=== PATIENT | female | born 1995 | race American Indian/Alaskan Native ===

== ENCOUNTER 2016-07-05 09:17 | Emergency (ER) | payer MEDICAID ==
[2016-07-05 09:25] VITALS: BP 107/68
--- NOTE | 2016-07-05 09:59 | Emergency Department Report ---
ED Lower Extremity HPI - General Chief Complaint: Extremity Injury, Lower Stated Complaint: LEFT ANKLE PAIN Time Seen by Provider: 07/05/16 09:38 Source: patient Mode of arrival: Wheelchair Limitations: Physical Limitation - History of Present Illness Initial Comments: 21-year-old female past medical history none presents with complaint of left ankle pain status post inversion mechanism while walking on street yesterday. Patient states she tripped due to cracking sidewalk inverted left ankle and has had difficulty walking on left ankle since yesterday. The patient has visible swelling and left ankle joint and lateral malleolus, patient able to stand but unable to walk due to severe pain left ankle. Denies any other injuries. MD Complaint: ankle injury Onset/Timin -: days(s) Injury: Ankle: Left (twisted left ankle yesterday) Type of Injury: inversion Place: street/outdoors Severity: moderate Severity scale (0 -10): 7 Improves With: immobilization Worsens With: weight bearing, movement Context: walking Associated Symptoms: snap/pop sensation, swelling, unable to bear weight - Related Data Previous Rx's Medication Instructions Recorded Last Taken Type Naproxen [Naprosyn TAB] 500 mg PO BID PRN #25 tablet 07/05/16 Unknown Rx Allergies Allergy/AdvReac Type Severity Reaction Status Date / Time No Known Allergies Allergy Unverified 07/05/16 09:26 ED Review of Systems ROS: Stated complaint: LEFT ANKLE PAIN Other details as noted in HPI Constitutional: denies: chills, fever Eyes: denies: eye pain, eye discharge, vision change ENT: denies: ear pain, throat pain Respiratory: denies: cough, shortness of breath, wheezing Cardiovascular: denies: chest pain, palpitations Endocrine: no symptoms reported Gastrointestinal: denies: abdominal pain, nausea, diarrhea Genitourinary: denies: urgency, dysuria, discharge Musculoskeletal: as per HPI, joint swelling. denies: back pain, arthralgia Skin: denies: rash, lesions Neurological: denies: headache, weakness, paresthesias Psychiatric: denies: anxiety, depression Hematological/Lymphatic: denies: easy bleeding, easy bruising ED Past Medical Hx - Past Medical History Hx Diabetes: Yes (GESTATIONAL) - Surgical History Additional Surgical History: X 3. HERNIA REPAIR. TUBAL LIGATION - Social History Smoking Status: Never Smoker Substance Use Type: None - Medications Home Medications: Home Medications Medication Instructions Recorded Confirmed Last Taken Type Naproxen [Naprosyn TAB] 500 mg PO BID PRN #25 tablet 07/05/16 Unknown Rx ED Physical Exam - General Limitations: Physical Limitation General appearance: alert, in no apparent distress - Head Head exam: Present: atraumatic, normocephalic - Eye Eye exam: Present: normal appearance, PERRL, EOMI - ENT ENT exam: Present: mucous membranes moist - Neck Neck exam: Present: normal inspection - Respiratory Respiratory exam: Present: normal lung sounds bilaterally. Absent: respiratory distress - Cardiovascular Cardiovascular Exam: Present: regular rate, normal rhythm. Absent: systolic murmur, diastolic murmur, rubs, gallop - GI/Abdominal GI/Abdominal exam: Present: soft, normal bowel sounds - Extremities Exam Extremities exam: Present: normal inspection - Expanded Lower Extremity Exam Left Hip exam: Present: normal inspection, full ROM Upper Leg exam: Present: normal inspection, full ROM Knee exam: Present: normal inspection, full ROM Lower Leg exam: Present: normal inspection, full ROM Ankle exam: Present: full ROM (pain with plantarflexion and ankle inversion), tenderness (left ankle lateral malleolus swelling), swelling, ecchymosis Foot/Toe exam: Present: normal inspection, full ROM Neuro vascular tendon exam: Present: no vascular compromise Gait: Positive: observed and limited by pain 1 - Left lateral malleolus swelling - Back Exam Back exam: Present: normal inspection - Neurological Exam Neurological exam: Present: alert, oriented X3, CN II-XII intact, abnormal gait (cannot bear weight due to pain) - Psychiatric Psychiatric exam: Present: normal affect, normal mood - Skin Skin exam: Present: warm, dry, intact, normal color. Absent: rash ED Course Vital Signs 07/05/16 09:17 Temperature 98.1 F Pulse Rate 68 Respiratory 17 Rate Blood Pressure 107/68 O2 Sat by Pulse 99 Oximetry ED Lower Extremity MDM - Medical Decision Making A/P: Left lateral ankle sprain 1-crutches, ankle stirrup splint, nonweightbearing for now weightbearing as tolerated within the next few days 2-orthopedics referral, patient instructed to follow-up if pain persists beyond 5-7 days 3-naproxen 500 mg when necessary 4-RICE therapy Critical care attestation.: If time is entered above; I have spent that time in minutes in the direct care of this critically ill patient, excluding procedure time. ED Disposition Clinical Impression: Left ankle sprain Qualifiers: Encounter type: initial encounter Involved ligament of ankle: tibiofibular ligament Qualified Code(s): S93.432A - Sprain of tibiofibular ligament of left ankle, initial encounter Disposition: DISCHARGED TO HOME OR SELFCARE Is pt being admited?: No Does the pt Need Aspirin: No Condition: Stable Instructions: Ankle Sprain (ED), Ankle Stirrup Splint (ED), Crutch Instructions (ED), RICE Therapy (ED) Prescriptions: Naproxen [Naprosyn TAB] 500 mg PO BID PRN #25 tablet PRN Reason: Pain Referrals: PRIMARY MD DIANE [Primary Care Provider] - 3-5 Days EDWARD BRADSHAW MD [Staff Physician] - 3-5 Days Forms: Work/School Release Form(ED) Time of Disposition: 10:48
--- NOTE | 2016-07-05 10:35 | XRay Report ---
LEFT FOOT THREE VIEWS: 07/05/16 09:39:00 CLINICAL: Pain. FINDINGS: No fracture or dislocation. Normal soft tissues. No soft tissue air or foreign body. IMPRESSION: Normal.
--- NOTE | 2016-07-05 10:36 | XRay Report ---
LEFT ANKLE THREE VIEWS: 07/05/16 09:17:00 CLINICAL: Pain. FINDINGS: The ankle mortise is intact. No fracture or dislocation. Mild medial and lateral soft tissue swelling. No foreign body or soft tissue air. IMPRESSION: Soft tissue swelling but otherwise normal.
[2016-07-05] MEDS ORDERED: NORCO 5/325 PO ONE (10:40)
== END 2016-07-05 11:37 | disposition home or self-care (01) ==
LOC: ED 09:17
DX: S93.432A Sprain of tibiofibular ligament of left ankle, initial encounter (principal); X58.XXXA Exposure to other specified factors, initial encounter; Y93.9 Activity, unspecified; Y99.9 Unspecified external cause status; Y92.9 Unspecified place or not applicable
CPT/HCPCS: 99283

== ENCOUNTER 2016-08-25 12:27 | Emergency (ER) | payer MEDICAID ==
[2016-08-25 13:17] VITALS: BP 130/76
[2016-08-25 13:37] LABS: Basophils % (Auto) 0.4 % (0.0-1.8); Eosinophils % (Auto) 3.4 % (0.0-4.3); Hematocrit 28.9 % (30.3-42.9); Hemoglobin 8.9 gm/dl (10.1-14.3); Mean Corpuscular HGB Conc 31 % (30-34); Mean Corpuscular Hemoglobin 17 pg (28-32); Mean Corpuscular Volume 54 fl (79-97); Platelet Count 388 K/mm3 (140-440); Red Blood Count 5.41 M/mm3 (3.65-5.03); Red Cell Distribution Width 18.8 % (13.2-15.2); White Blood Count 9.4 K/mm3 (4.5-11.0)
[2016-08-25 13:54] LABS: Alanine Aminotransferase 13 units/L (7-56); Albumin 4.2 g/dL (3.9-5); Albumin/Globulin Ratio 1.4 %; Alkaline Phosphatase 99 units/L (35-129); Anion Gap 17 mmol/L; Bilirubin,Total 0.2 mg/dL (0.1-1.2); Blood Urea Nitrogen 6 mg/dL (7-17); Calcium 8.9 mg/dL (8.4-10.2); Carbon Dioxide 21 mmol/L (22-30); Glucose 124 mg/dL (65-100); Lipase 31 units/L (13-60); Potassium 3.7 mmol/L (3.6-5.0); Sodium 138 mmol/L (137-145); Total Protein 7.1 g/dL (6.3-8.2)
[2016-08-25 14:12] LABS: Bacteria,Urine 1+ /HPF (Negative); Bilirubin,Urine NEG (Negative); Blood,Urine SM (Negative); Ketones,Urine NEG (Negative); Leukocyte Esterase,Urine SM (Negative); Mucus,Urine 3+ /HPF; Nitrite,Urine POS (Negative); Protein,Urine <15 mg/dL mg/dL (Negative); Urobilinogen,Urine < 2.0 mg/dL (<2.0)
--- NOTE | 2016-08-27 07:04 | ED Elopement Review ---
ED Pt Elopement review - Results review Lab results: Laboratory Tests 08/25/16 08/25/16 08/25/16 13:25 13:25 13:25 WBC 9.4 RBC 5.41 H Hgb 8.9 L Hct 28.9 L MCV 54 L MCH 17 L MCHC 31 RDW 18.8 H Plt Count 388 Lymph % (Auto) 45.2 H [place] % (Auto) 5.8 Eos % (Auto) 3.4 Baso % (Auto) 0.4 Lymph # 4.3 [place] # 0.5 Eos # 0.3 Baso # 0.0 Seg Neutrophils % 45.2 Seg Neutrophils # 4.3 Sodium 138 Potassium 3.7 Chloride 104.0 Carbon Dioxide 21 L Anion Gap 17 BUN 6 L Creatinine 0.6 L Estimated GFR > 60 BUN/Creatinine Ratio 10.00 Glucose 124 H Calcium 8.9 Total Bilirubin 0.2 AST 14 ALT 13 Alkaline Phosphatase 99 Total Protein 7.1 Albumin 4.2 Albumin/Globulin Ratio 1.4 Lipase 31 HCG, Qual Negative Urine Color Urine Turbidity Urine pH Ur Specific [place] Urine Protein Urine Glucose (UA) Urine Ketones Urine Blood Urine Nitrite Urine Bilirubin Urine Urobilinogen Ur Leukocyte Esterase Urine WBC (Auto) Urine RBC (Auto) U Epithel Cells (Auto) Urine Bacteria (Auto) Urine Mucus 08/25/16 13:39 WBC RBC Hgb Hct MCV MCH MCHC RDW Plt Count Lymph % (Auto) [place] % (Auto) Eos % (Auto) Baso % (Auto) Lymph # [place] # Eos # Baso # Seg Neutrophils % Seg Neutrophils # Sodium Potassium Chloride Carbon Dioxide Anion Gap BUN Creatinine Estimated GFR BUN/Creatinine Ratio Glucose Calcium Total Bilirubin AST ALT Alkaline Phosphatase Total Protein Albumin Albumin/Globulin Ratio Lipase HCG, Qual Urine Color Yellow Urine Turbidity Cloudy Urine pH 6.0 Ur Specific [place] 1.021 Urine Protein <15 mg/dl Urine Glucose (UA) Neg Urine Ketones Neg Urine Blood Sm Urine Nitrite Pos Urine Bilirubin Neg Urine Urobilinogen < 2.0 Ur Leukocyte Esterase Sm Urine WBC (Auto) 14.0 H Urine RBC (Auto) 2.0 U Epithel Cells (Auto) 7.0 Urine Bacteria (Auto) 1+ Urine Mucus 3+ - Call Back decision Pt Call Back Decision: No action required
== END 2016-08-25 22:10 | disposition left against medical advice (07) ==
LOC: ED 12:27
DX: R10.9 Unspecified abdominal pain (principal); R11.10 Vomiting, unspecified; R19.7 Diarrhea, unspecified; Z53.21 Procedure and treatment not carried out due to patient leaving prior to being seen by health care provider
CPT/HCPCS: 36415; 80053; 81001; 83690; 84703; 85025

== ENCOUNTER 2017-03-31 09:38 | Emergency (ER) | payer MEDICAID ==
[2017-03-31 10:23] LABS: Basophils % (Auto) 0.4 % (0.0-1.8); Eosinophils % (Auto) 1.4 % (0.0-4.3); Hematocrit 25.8 % (30.3-42.9); Hemoglobin 8.1 gm/dl (10.1-14.3); Mean Corpuscular HGB Conc 31 % (30-34); Platelet Count 401 K/mm3 (140-440); Red Blood Count 5.01 M/mm3 (3.65-5.03)
[2017-03-31 10:24] LABS: Mean Corpuscular Hemoglobin 16 pg (28-32); Mean Corpuscular Volume 52 fl (79-97); Red Cell Distribution Width 20.2 % (13.2-15.2)
[2017-03-31 10:41] LABS: Alanine Aminotransferase 12 units/L (7-56); Albumin/Globulin Ratio 1.2 %; Alkaline Phosphatase 92 units/L (35-129); Anion Gap 18 mmol/L; BUN/Creatinine Ratio 14; Blood Urea Nitrogen 7 mg/dL (7-17); Calcium 8.7 mg/dL (8.4-10.2); Carbon Dioxide 23 mmol/L (22-30); Chloride 102.7 mmol/L (98-107); Glucose 123 mg/dL (65-100); Lipase 28 units/L (13-60); Potassium 4.1 mmol/L (3.6-5.0); Sodium 140 mmol/L (137-145); Total Protein 7.4 g/dL (6.3-8.2)
[2017-03-31 11:36] LABS: Bacteria,Urine 2+ /HPF (Negative); Bilirubin,Urine NEG (Negative); Blood,Urine NEG (Negative); Ketones,Urine NEG (Negative); Leukocyte Esterase,Urine NEG (Negative); Mucus,Urine 3+ /HPF; Nitrite,Urine POS (Negative); Protein,Urine <15 mg/dL mg/dL (Negative); Urobilinogen,Urine < 2.0 mg/dL (<2.0)
[2017-03-31] MEDS ORDERED: NACL 0.9% 250ML 250 ML IV ONE (17:48)
[2017-03-31] MEDS ORDERED: DILAUDID IV ONE (17:48)
[2017-03-31] MEDS ORDERED: TORADOL IV ONE (17:48)
--- NOTE | 2017-03-31 17:49 | Emergency Department Report ---
ED General Adult HPI - General Chief complaint: Abdominal Pain Stated complaint: ABDOMINAL PAIN, VOMITING,DIARRHEA Time Seen by Provider: 03/31/17 17:38 Source: patient, RN notes reviewed Mode of arrival: Ambulatory Limitations: No Limitations - History of Present Illness Initial comments: This is a 21-year-old female. The patient is previously known to this provider. Her primary care doctor includes Dr. Homero Barrios. She is a past medical history of 3, last was one year ago, and chronic anemia. Patient presents to the ER with right lower quadrant pain that is intermittent for the past 2 weeks. Pain increases with walking, standing, sitting up. It decreases with rest. There is no nausea, vomiting or diarrhea. Patient denies irritative and obstructive urinary symptoms. The patient denies vaginal discharge at this time. -: Gradual Location: abdomen Quality: aching Consistency: intermittent Improves with: rest Worsens with: movement Associated Symptoms: denies: confusion, chest pain, cough, diaphoresis, headaches, loss of appetite, malaise, nausea/vomiting, shortness of breath, syncope, weakness - Related Data Previous Rx's Medication Instructions Recorded Last Taken Type Acetaminophen [Tylenol Arthritis] 650 mg PO Q6HR PRN #30 tablet.er 03/31/17 Unknown Rx Doxycycline [Vibramycin] 100 mg PO Q12HR #28 capsule 03/31/17 Unknown Rx Ibuprofen [Motrin] 600 mg PO Q8H PRN #30 tablet 03/31/17 Unknown Rx Ondansetron [Zofran Odt] 4 mg PO Q8HR PRN #20 tab.rapdis 03/31/17 Unknown Rx Allergies Allergy/AdvReac Type Severity Reaction Status Date / Time No Known Allergies Allergy Verified 08/25/16 13:11 ED Review of Systems ROS: Stated complaint: ABDOMINAL PAIN, VOMITING,DIARRHEA Other details as noted in HPI Constitutional: denies: fever, malaise Eyes: denies: vision change ENT: denies: epistaxis Respiratory: denies: cough Cardiovascular: denies: chest pain Gastrointestinal: abdominal pain Genitourinary: denies: discharge Musculoskeletal: denies: back pain Skin: denies: lesions Neurological: denies: weakness ED Past Medical Hx - Past Medical History Previous Medical History?: Yes Hx Diabetes: Yes (GESTATIONAL) Additional medical history: ANEMIA - Surgical History Past Surgical History?: Yes Additional Surgical History: X 3. HERNIA REPAIR. TUBAL LIGATION - Social History Smoking Status: Current Every Day Smoker Substance Use Type: Prescribed - Medications Home Medications: Home Medications Medication Instructions Recorded Confirmed Last Taken Type Acetaminophen [Tylenol Arthritis] 650 mg PO Q6HR PRN #30 tablet.er 03/31/17 Unknown Rx Doxycycline [Vibramycin] 100 mg PO Q12HR #28 capsule 03/31/17 Unknown Rx Ibuprofen [Motrin] 600 mg PO Q8H PRN #30 tablet 03/31/17 Unknown Rx Ondansetron [Zofran Odt] 4 mg PO Q8HR PRN #20 tab.rapdis 03/31/17 Unknown Rx ED Physical Exam - General Limitations: No Limitations General appearance: alert, in no apparent distress - Head Head exam: Present: atraumatic, normocephalic - Eye Eye exam: Present: normal appearance, EOMI - ENT ENT exam: Present: normal exam, normal orophraynx, mucous membranes moist, normal external ear exam - Neck Neck exam: Present: normal inspection, full ROM - Respiratory Respiratory exam: Present: normal lung sounds bilaterally. Absent: respiratory distress, chest wall tenderness - Cardiovascular Cardiovascular Exam: Present: regular rate, normal rhythm, normal heart sounds. Absent: systolic murmur, diastolic murmur, rubs, gallop - GI/Abdominal GI/Abdominal exam: Present: soft, tenderness, normal bowel sounds, other (there is right lower quadrant tenderness, there is right flank tenderness, there is no rebound, guarding or peritoneal signs). Absent: distended, guarding, rebound , rigid, pulsatile mass - External exam: Present: normal external exam Speculum exam: Present: vaginal discharge, cervical discharge Bi-manual exam: Present: normal bi-manual exam, cervical motion tendernes, adnexal tenderness, other (escorted by ER local [place] truck driver Dev Mittal). Absent : uterine tenderness - Extremities Exam Extremities exam: Present: normal inspection, full ROM, normal capillary refill. Absent: pedal edema, joint swelling, calf tenderness - Back Exam Back exam: Present: normal inspection, full ROM. Absent: tenderness, CVA tenderness (R), paraspinal tenderness, vertebral tenderness - Neurological Exam Neurological exam: Present: alert, oriented X3, normal gait, other (Extraocular movements intact. Tongue midline. No facial droop. Facial sensation intact to light touch in the V1, V2, V3 distribution bilaterally. 5 and 5 strength in 4 extremities.. Sensation is intact to light touch in 4 extremities.). Absent : motor sensory deficit - Psychiatric Psychiatric exam: Present: normal affect, normal mood - Skin Skin exam: Present: warm, dry, intact, normal color. Absent: rash ED Course Vital Signs 03/31/17 03/31/17 10:03 19:30 Temperature 98.3 F Pulse Rate 82 Respiratory 18 16 Rate Blood Pressure 114/67 O2 Sat by Pulse 98 Oximetry - Reevaluation(s) Reevaluation #1: 03/31/17 19:35 Differential diagnosis, including but not limited to: Appendicitis, colitis, diverticulitis, Crohn's disease, ileitis, pelvic inflammatory disease, constipation, ovarian cyst, ovarian torsion Assessment and plan: 21-year-old female with 2 weeks of lower quadrant abdominal pain. The patient is afebrile with reassuring vital signs. She has lower abdominal tenderness. A transabdominal ultrasound of the pelvis demonstrated no evidence of right-sided ovarian torsion. A right-sided ovarian cyst was noted. Minimal pelvic fluid was noted. The left ovary was not visualized. CT scan of the abdomen and pelvis is pending. Gynecologic examination is pending. Urinalysis is contaminated, a repeat clean catch urine sample will be required. Reevaluation #2: 03/31/17 19:49 Transvaginal ultrasound demonstrates no evidence of torsion. Given 2 week history of pain, this is consistent with the patient's history. CT scan of the abdomen and pelvis demonstrate no surgical disease, again redemonstrates ovarian cyst. Patient had watery discharge, as well as adnexal tenderness, most prominent on the right, and some cervical discomfort. Therefore the patient will be treated empirically with ceftriaxone and doxycycline. Reevaluation #3: 03/31/17 19:52 Patient reports her pain is improved. She is noted to be speaking on a cellular phone. ED Medical Decision Making - Lab Data Result diagrams: 03/31/17 10:12 03/31/17 10:10 Vital Signs 03/31/17 03/31/17 10:03 19:30 Temperature 98.3 F Pulse Rate 82 Respiratory 18 16 Rate Blood Pressure 114/67 O2 Sat by Pulse 98 Oximetry Lab Results 03/31/17 03/31/17 03/31/17 Range/Units 10:10 10:12 10:32 WBC 9.0 (4.5-11.0) K/mm3 RBC 5.01 (3.65-5.03) M/mm3 Hgb 8.1 L (10.1-14.3) gm/dl Hct 25.8 L (30.3-42.9) % MCV 52 L (79-97) fl MCH 16 L (28-32) pg MCHC 31 (30-34) % RDW 20.2 H (13.2-15.2) % Plt Count 401 (140-440) K/mm3 Lymph % (Auto) 38.7 H (13.4-35.0) % [place] % (Auto) 4.3 (0.0-7.3) % Eos % (Auto) 1.4 (0.0-4.3) % Baso % (Auto) 0.4 (0.0-1.8) % Lymph # 3.5 (1.2-5.4) K/mm3 [place] # 0.4 (0.0-0.8) K/mm3 Eos # 0.1 (0.0-0.4) K/mm3 Baso # 0.0 (0.0-0.1) K/mm3 Seg Neutrophils % 55.2 (40.0-70.0) % Seg Neutrophils # 5.0 (1.8-7.7) K/mm3 Sodium 140 (137-145) mmol/L Potassium 4.1 (3.6-5.0) mmol/L Chloride 102.7 (98-107) mmol/L Carbon Dioxide 23 (22-30) mmol/L Anion Gap 18 mmol/L BUN 7 (7-17) mg/dL Creatinine 0.5 L (0.7-1.2) mg/dL Estimated GFR > 60 ml/min BUN/Creatinine Ratio 14 % Glucose 123 H (65-100) mg/dL Calcium 8.7 (8.4-10.2) mg/dL Total Bilirubin 0.20 (0.1-1.2) mg/dL AST 14 (5-40) units/L ALT 12 (7-56) units/L Alkaline Phosphatase 92 (35-129) units/L Total Protein 7.4 (6.3-8.2) g/dL Albumin 4.0 (3.9-5) g/dL Albumin/Globulin Ratio 1.2 % Lipase 28 (13-60) units/L Urine Color Yellow (Yellow) Urine Turbidity Clear (Clear) Urine pH 6.0 (5.0-7.0) Ur Specific [place] 1.021 (1.003-1.030) Urine Protein <15 mg/dl (Negative) mg/dL Urine Glucose (UA) Neg (Negative) mg/dL Urine Ketones Neg (Negative) mg/dL Urine Blood Neg (Negative) Urine Nitrite Pos (Negative) Urine Bilirubin Neg (Negative) Urine Urobilinogen < 2.0 (<2.0) mg/dL Ur Leukocyte Esterase Neg (Negative) Urine WBC (Auto) 3.0 (0.0-6.0) /HPF Urine RBC (Auto) 3.0 (0.0-6.0) /HPF U Epithel Cells (Auto) 22.0 H (0-13.0) /HPF Urine Bacteria (Auto) 2+ (Negative) /HPF Urine Mucus 3+ /HPF Urine HCG, Qual (Negative) 03/31/17 Range/Units 10:32 WBC (4.5-11.0) K/mm3 RBC (3.65-5.03) M/mm3 Hgb (10.1-14.3) gm/dl Hct (30.3-42.9) % MCV (79-97) fl MCH (28-32) pg MCHC (30-34) % RDW (13.2-15.2) % Plt Count (140-440) K/mm3 Lymph % (Auto) (13.4-35.0) % [place] % (Auto) (0.0-7.3) % Eos % (Auto) (0.0-4.3) % Baso % (Auto) (0.0-1.8) % Lymph # (1.2-5.4) K/mm3 [place] # (0.0-0.8) K/mm3 Eos # (0.0-0.4) K/mm3 Baso # (0.0-0.1) K/mm3 Seg Neutrophils % (40.0-70.0) % Seg Neutrophils # (1.8-7.7) K/mm3 Sodium (137-145) mmol/L Potassium (3.6-5.0) mmol/L Chloride (98-107) mmol/L Carbon Dioxide (22-30) mmol/L Anion Gap mmol/L BUN (7-17) mg/dL Creatinine (0.7-1.2) mg/dL Estimated GFR ml/min BUN/Creatinine Ratio % Glucose (65-100) mg/dL Calcium (8.4-10.2) mg/dL Total Bilirubin (0.1-1.2) mg/dL AST (5-40) units/L ALT (7-56) units/L Alkaline Phosphatase (35-129) units/L Total Protein (6.3-8.2) g/dL Albumin (3.9-5) g/dL Albumin/Globulin Ratio % Lipase (13-60) units/L Urine Color (Yellow) Urine Turbidity (Clear) Urine pH (5.0-7.0) Ur Specific [place] (1.003-1.030) Urine Protein (Negative) mg/dL Urine Glucose (UA) (Negative) mg/dL Urine Ketones (Negative) mg/dL Urine Blood (Negative) Urine Nitrite (Negative) Urine Bilirubin (Negative) Urine Urobilinogen (<2.0) mg/dL Ur Leukocyte Esterase (Negative) Urine WBC (Auto) (0.0-6.0) /HPF Urine RBC (Auto) (0.0-6.0) /HPF U Epithel Cells (Auto) (0-13.0) /HPF Urine Bacteria (Auto) (Negative) /HPF Urine Mucus /HPF Urine HCG, Qual Negative (Negative) Patient has chronic anemia, which appears to be at baseline. - Radiology Data Radiology results: report reviewed Critical care attestation.: If time is entered above; I have spent that time in minutes in the direct care of this critically ill patient, excluding procedure time. ED Disposition Clinical Impression: Abdominal pain Disposition: DC-01 TO HOME OR SELFCARE Is pt being admited?: No Does the pt Need Aspirin: No Condition: Stable Instructions: Pelvic Inflammatory Disease (ED) Additional Instructions: As we discussed, your laboratory studies appeared to be within normal limits. You are not . The CAT scan your abdomen/pelvis did not demonstrate any acute disease or pathology that would require emergency surgery, or antibiotic therapy. The addition, your pelvic ultrasound was within normal limits. CAT scan and ultrasound both suggested right-sided ovarian cyst. Given all this, you'll be treated empirically for disease called pelvic inflammatory disease. We typically treat young females with unexplained lower abdominal pain to protect your ability to have children safely in the future. Cultures were sent today, and results will be available next 3-5 days. Please have your primary care doctor call the medical records department to obtain your culture results. Take the antibiotic therapy as directed. Take the nausea medication and pain medication as directed. I recommend outpatient testing for sexually transmitted diseases, including hepatitis, syphilis and HIV. I also recommend that you abstain from sexual activity until you have completed her antibiotic therapy, a physician states that it is safe for you to resume sexual activity, and any partners that you have been sexually active with have been tested/treated/evaluated for sexual transmitted diseases. Please follow-up with physician within 3-5 days. I recommend that you return to the ER right away with worsening pain, migration of pain, intractable nausea/vomiting, inability tolerate liquid feeds. Prescriptions: Acetaminophen [Tylenol Arthritis] 650 mg PO Q6HR PRN #30 tablet.er PRN Reason: Pain Doxycycline [Vibramycin] 100 mg PO Q12HR #28 capsule Ibuprofen [Motrin] 600 mg PO Q8H PRN #30 tablet PRN Reason: Pain Ondansetron [Zofran Odt] 4 mg PO Q8HR PRN #20 tab.rapdis PRN Reason: Nausea Referrals: PRIMARY CARE, [Primary Care Provider] - 3-5 Days [facility] [Provider Group] - 3-5 Days [facility] [Provider Group] - 3-5 Days [facility] [Provider Group] - 3-5 Days
[2017-03-31] MEDS ORDERED: NACL 0.9% 500 ML 250 ML IV ONE (19:45)
--- NOTE | 2017-03-31 19:46 | Cat Scan Report ---
FINAL REPORT EXAM: CT ABDOMEN PELVIS W CON HISTORY: RLQ ABD PAIN . Right ovarian cysts seen on recent pelvic ultrasound TECHNIQUE: Standard enhanced CT of the abdomen and pelvis. Delayed images through the kidneys and bladder were obtained. Coronal and sagittal reconstruction was also performed. Contrast: 100 mL Omnipaque 300 given IV. PRIORS: Ultrasound pelvis 03/31/2017 FINDINGS: Within the abdomen, the liver, spleen, pancreas, gallbladder, adrenal glands, and kidneys are unremarkable. No evidence for retroperitoneal or pelvic lymphadenopathy is seen. Scattered diverticuli throughout the colon are seen without active diverticulitis. The small bowel loops have normal caliber. No soft tissue mass, fluid collection, inflammatory change, or free air is seen within the abdomen or pelvis. The appendix is normal. Within the pelvis, the bladder is unremarkable. The uterus is normal with the fundus of the uterus located directly beneath the anterior abdominal wall musculature. There is a low-density cyst in the right adnexa, consistent with the right ovarian cyst seen on ultrasound. This measures 2.5 x 1.7 cm (axial image 131, series 3). No evidence for mass or lymphadenopathy is seen in the pelvis. Images through the upper abdomen include the lung bases which are expanded and clear. Bony structures show a unilateral spondylolysis to the right at L5. No spondylolisthesis is seen. IMPRESSION: 1. no acute intra-abdominal process noted. 2. Right ovarian cyst again noted as seen on prior ultrasound 3. Scattered diverticuli without active diverticulosis. 4. Incidental unilateral spondylolysis to the right of L5, likely congenital.
[2017-03-31] MEDS ORDERED: VIBRAMYCIN PO ONE (19:47)
[2017-03-31] MEDS ORDERED: TYLENOL #3 PO ONE (19:48)
[2017-03-31 20:24] LABS: Bilirubin,Urine NEG (Negative); Blood,Urine NEG (Negative); Ketones,Urine NEG (Negative); Leukocyte Esterase,Urine NEG (Negative); Mucus,Urine FEW /HPF; Nitrite,Urine NEG (Negative); Protein,Urine <15 mg/dL mg/dL (Negative); Urobilinogen,Urine < 2.0 mg/dL (<2.0); WBC,Urine < 1.0 /HPF (0.0-6.0)
[2017-03-31] MEDS ORDERED: ROCEPHIN 250 MG in NACL 0.9% 50 ML IV ONE (20:51)
[2017-03-31 21:29] VITALS: BP 116/56
--- NOTE | 2017-04-01 07:24 | Ultrasound Report ---
FINAL REPORT PROCEDURE: US PELVIS TECHNIQUE: Real-time transabdominal sonography in multiple planes of the pelvis was performed. The pelvic structures, especially the ovaries were not optimally visualized. Transvaginal sonography was then performed to better evaluate the structures and/or abnormalities described below with image documentation. Limited Doppler evaluation of the ovaries/adnexa. CPT 31640 and 42461 HISTORY: Pelvic pain. COMPARISON: No prior studies are available for comparison. FINDINGS: UTERUS Size: 12.2 x 5.1 x 6.8 cm. Endometrial thickness: 13.9 mm. Orientation: anteverted. Cervix: Normal. Fibroids/masses: None. RIGHT Ovary: 3.8 x 3.0 x 3.1 cm. Appearance: 2.1 cm anechoic lesion. Normal flow. LEFT Ovary: Not visualized. Pelvic fluid: Minimal. Other: None. IMPRESSION: Right ovarian cyst. Minimal pelvic fluid. Left ovary not visualized.
--- NOTE | 2017-04-01 07:28 | Ultrasound Report ---
FINAL REPORT PROCEDURE: US PELVIS TECHNIQUE: Real-time transabdominal sonography in multiple planes of the pelvis was performed. The pelvic structures, especially the ovaries were not optimally visualized. Transvaginal sonography was then performed to better evaluate the structures and/or abnormalities described below with image documentation. Limited Doppler evaluation of the ovaries/adnexa. CPT 42834 and 40886 HISTORY: Pelvic pain. COMPARISON: No prior studies are available for comparison. FINDINGS: UTERUS Size: 12.2 x 5.1 x 6.8 cm. Endometrial thickness: 13.9 mm. Orientation: anteverted. Cervix: Normal. Fibroids/masses: None. RIGHT Ovary: 3.8 x 3.0 x 3.1 cm. Appearance: 2.1 cm anechoic lesion. Normal flow. LEFT Ovary: Not visualized. Pelvic fluid: Minimal. Other: None. IMPRESSION: Right ovarian cyst. Minimal pelvic fluid. Left ovary not visualized.
== END 2017-03-31 21:00 | disposition home or self-care (01) ==
LOC: ED 09:38
DX: R10.31 Right lower quadrant pain (principal); E11.9 Type 2 diabetes mellitus without complications; F17.200 Nicotine dependence, unspecified, uncomplicated
CPT/HCPCS: 36415; 74177; 76830; 80053; 81001; 81025; 83690; 85025; 87210; 87591; 93975; 96365; 96375; 99285; J0696; J1170; J1885; J7040; Q9967

== ENCOUNTER 2017-04-23 22:09 | Emergency (ER) | payer MEDICAID ==
[2017-04-23 23:35] LABS: Basophils % (Auto) 0.5 % (0.0-1.8); Eosinophils % (Auto) 1.3 % (0.0-4.3); Hematocrit 24.6 % (30.3-42.9); Hemoglobin 7.3 gm/dl (10.1-14.3); Mean Corpuscular HGB Conc 30 % (30-34); Platelet Count 387 K/mm3 (140-440); Red Blood Count 4.67 M/mm3 (3.65-5.03); White Blood Count 11.4 K/mm3 (4.5-11.0)
[2017-04-23 23:41] LABS: Alanine Aminotransferase 12 units/L (7-56); Albumin/Globulin Ratio 1.4 %; Alkaline Phosphatase 103 units/L (35-129); Anion Gap 15 mmol/L; BUN/Creatinine Ratio 15; Bilirubin,Total < 0.20 mg/dL (0.1-1.2); Blood Urea Nitrogen 9 mg/dL (7-17); Calcium 8.6 mg/dL (8.4-10.2); Carbon Dioxide 24 mmol/L (22-30); Chloride 105.6 mmol/L (98-107); Glucose 151 mg/dL (65-100); Lipase 39 units/L (13-60); Potassium 3.7 mmol/L (3.6-5.0); Sodium 141 mmol/L (137-145); Total Protein 6.8 g/dL (6.3-8.2)
[2017-04-23 23:45] LABS: Mean Corpuscular Volume 53 fl (79-97)
[2017-04-23 23:46] LABS: Mean Corpuscular Hemoglobin 16 pg (28-32); Red Cell Distribution Width 20.6 % (13.2-15.2)
[2017-04-24 00:21] LABS: Bilirubin,Urine NEG (Negative); Blood,Urine NEG (Negative); Ketones,Urine NEG (Negative); Leukocyte Esterase,Urine NEG (Negative); Mucus,Urine 2+ /HPF; Nitrite,Urine NEG (Negative); Protein,Urine <15 mg/dL mg/dL (Negative)
[2017-04-24] MEDS ORDERED: TORADOL IM ONE (06:47)
[2017-04-24] MEDS ORDERED: ZOFRAN ODT PO ONE ×2 (06:47→09:21)
[2017-04-24] MEDS ORDERED: NORCO 7.5/325 PO ONE (06:47)
--- NOTE | 2017-04-24 07:03 | Emergency Department Report ---
HPI - General Chief Complaint: Abdominal Pain Time Seen by Provider: 04/24/17 06:05 - HPI HPI: The patient is 21-year-old female with a history of chronic right ovarian cyst and pain, who presents for evaluation recurrence of right lower abdominal and pelvic pain. She reports recurrence of pain for the past 2 days, constant since onset, 8/10 in severity, crampy in quality, exacerbated with movement, and consistent with previous episodes of ovarian cysts pain per the patient. The patient denies fever, chills, night sweats, diarrhea, blood in the stool, dark tarry stool, dysuria, hematuria, flank pain, genital discharge, inability to pass flatus. ED Past Medical Hx - Past Medical History Hx Diabetes: Yes (GESTATIONAL) Additional medical history: ANEMIA - Surgical History Additional Surgical History: X 3. HERNIA REPAIR. TUBAL LIGATION - Social History Smoking Status: Unknown if ever smoked Substance Use Type: None - Medications Home Medications: Home Medications Medication Instructions Recorded Confirmed Last Taken Type Acetaminophen [Tylenol Arthritis] 650 mg PO Q6HR PRN #30 tablet.er 03/31/17 Unknown Rx Doxycycline [Vibramycin] 100 mg PO Q12HR #28 capsule 03/31/17 Unknown Rx Ibuprofen [Motrin] 600 mg PO Q8H PRN #30 tablet 03/31/17 Unknown Rx Ondansetron [Zofran Odt] 4 mg PO Q8HR PRN #20 tab.rapdis 03/31/17 Unknown Rx HYDROcodone/APAP 7.5-325 [Dinosaur 1 each PO Q8HR PRN #10 tablet 04/24/17 Unknown Rx 7.5-325 mg TAB] Ibuprofen [Motrin] 800 mg PO Q8HR PRN #15 tablet 04/24/17 Unknown Rx ED Review of Systems ROS: Stated complaint: R. SIDE ABD PAIN Other details as noted in HPI Constitutional: denies: fever ENT: denies: throat or neck pain Respiratory: denies: cough, shortness of breath Cardiovascular: denies: chest pain Endocrine: denies unexplained weight loss or gain Gastrointestinal: reports abdominal pain, nausea Genitourinary: denies: dysuria Musculoskeletal: denies: leg swelling Skin: denies: rash Neurological: denies: headache Hematological/Lymphatic: denies: easy bleeding or easy bruising Psych: denies sadness or hopelessness Physical Exam - Physical Exam Vital Signs: Vital Signs 04/23/17 04/24/17 23:00 04:23 Temperature 98.4 F 98.6 F Pulse Rate 75 79 Respiratory 18 18 Rate Blood Pressure 103/77 118/65 O2 Sat by Pulse 100 100 Oximetry Physical Exam: General: well-nourished, well-developed, no acute distress Head: Normocephalic, atraumatic Eyes: normal sclera ENT: Mucous membranes are pink and moist Neck: trachea midline, neck supple, No neck stiffness, no cervical adenopathy Respiratory: Breath sounds equal bilaterally, no wheezing, rales, or rhonchi Cardio: S1 and S2 present, no murmurs, rubs, gallops, capillary refill is brisk Abdomen: Normoactive bowel sounds, soft abdomen, right lower quadrant tenderness to palpation present, no rigidity, no guarding or rebound tenderness Chest WALL/Back: no CVA tenderness with percussion Musc: No pitting edema Skin: No rash Neuro: no facial drooping, normal speech Psych: Normal affect ED Course Vital Signs 04/23/17 04/24/17 23:00 04:23 Temperature 98.4 F 98.6 F Pulse Rate 75 79 Respiratory 18 18 Rate Blood Pressure 103/77 118/65 O2 Sat by Pulse 100 100 Oximetry ED Medical Decision Making - Lab Data Result diagrams: 04/23/17 23:08 04/23/17 23:08 - Medical Decision Making The patient was seen and examined by myself. The patient is placed on a manufacturer's service representative and continuous pulse ox. On initial evaluation, the patient was found to be in no distress. Evaluation orders are placed. The patient is given IM dose of Toradol for pain. Medical records were reviewed and revealed that the patient received a ultrasound and CT abd/pelvis 4 weeks ago tht exhibited persistence of right ovarian cysts. Lab results were non-concerning including WBC, hemoglobin, hematocrit, electrolytes, renal function, LFTs, lipase, and urinalysis. The patient was reevaluated and reported that their symptoms were markedly improved, and she was found to remain with normal vital signs, nonacute abdomen on exam, no pain at McBurney's point. As patient has normal vital signs, no fever, no pain in the paraspinal reevaluation, there is low probability of appendicitis etiology of the patient's symptoms, and the patient is stable for discharge with outpatient follow-up. The patient is given follow-up and return instructions. The patient expressed understanding and agreed with the plan. The patient is discharged in stable condition. Critical care attestation.: If time is entered above; I have spent that time in minutes in the direct care of this critically ill patient, excluding procedure time. ED Disposition Clinical Impression: Acute abdominal pain in right lower quadrant, Pelvic pain Disposition: TO HOME OR SELFCARE Is pt being admited?: No Does the pt Need Aspirin: No Condition: Stable Instructions: Ovarian Cyst (ED), Abdominal Pain (ED) Prescriptions: HYDROcodone/APAP 7.5-325 [Dinosaur 7.5-325 mg TAB] 1 each PO Q8HR PRN #10 tablet PRN Reason: Pain Ibuprofen [Motrin] 800 mg PO Q8HR PRN #15 tablet PRN Reason: Pain Referrals: DEVORAH SULLIVAN MD [Primary Care Provider] - 3-5 Days Time of Disposition: 06:48
[2017-04-24 09:30] VITALS: BP 108/57
== END 2017-04-24 09:35 | disposition home or self-care (01) ==
LOC: ED 22:09
DX: R10.31 Right lower quadrant pain (principal); R10.2 Pelvic and perineal pain
CPT/HCPCS: 36415; 80053; 81001; 81025; 83690; 85025; 96372; 99284; J1885; Q0162

== ENCOUNTER 2017-12-02 19:34 | Emergency (ER) | payer MEDICAID ==
[2017-12-02 20:26] LABS: Hemoglobin 7.5 gm/dl (10.1-14.3); Mean Corpuscular HGB Conc 28 % (30-34); Platelet Count 409 K/mm3 (140-440); Red Blood Count 5.41 M/mm3 (3.65-5.03)
[2017-12-02 20:27] LABS: Hematocrit 27.2 % (30.3-42.9); Mean Corpuscular Hemoglobin 14 pg (28-32); Mean Corpuscular Volume 50 fl (79-97); Red Cell Distribution Width 21.4 % (13.2-15.2)
[2017-12-02 21:00] LABS: Alanine Aminotransferase 15 units/L (7-56); Albumin 4.2 g/dL (3.9-5); BUN/Creatinine Ratio 13; Blood Urea Nitrogen 8 mg/dL (7-17); Calcium 8.9 mg/dL (8.4-10.2); Hemolysis Index 0
[2017-12-02 21:14] LABS: Basophils % (Manual) 0 % (0.0-1.8); Total Cells Counted 100
[2017-12-02 21:15] LABS: Anisocytosis 1+; Hypochromasia 2+; Platelet Estimate Consistent w Auto; Poikilocytosis 1+; Schistocytes Few
[2017-12-02 21:16] LABS: Target Cells 1+; Tear Drop Cells Few
[2017-12-02 21:49] LABS: HCG Qualitative,Urine Negative (Negative)
[2017-12-02 21:52] LABS: Bacteria,Urine 4+ /HPF (Negative); Bilirubin,Urine NEG (Negative); Blood,Urine NEG (Negative); Color,Urine Yellow (Yellow); Mucus,Urine 2+ /HPF
[2017-12-02] MEDS: ALUM-MAG HYDROX-SIMETH 200-200-20MG/5ML PO ONE (22:27)
[2017-12-02] MEDS: LIDOCAINE VISCOUS 2% PO ONE (22:27)
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
[2017-12-02 23:48] LABS: Alanine Aminotransferase 15 units/L (7-56); Albumin 4.4 g/dL (3.9-5)
[2017-12-02 23:49] LABS: Bilirubin,Direct < 0.2 mg/dL (0-0.2)
[2017-12-02 23:56] VITALS: BP 118/57
== END 2017-12-02 23:57 | disposition home or self-care (01) ==
LOC: ED 19:34
DX: R10.10 Upper abdominal pain, unspecified (principal); D64.9 Anemia, unspecified
CPT/HCPCS: 36415; 80053; 80074; 81001; 81025; 85007; 85025